=== PATIENT | male | born 1985 | race Caucasian/White ===

== ENCOUNTER 2019-04-28 12:37 | Emergency (ER) | payer MEDICAID, MEDICARE ==
[~2019-04-28] VITALS: Ht 180.3 cm; Wt 73.0 kg
[2019-04-28] MEDS ORDERED: LORAZEPAM 0.5MG TABLET PO ONE (15:30)
[2019-04-28 17:31] VITALS: BP 124/82
== END 2019-04-28 17:47 | disposition home or self-care (01) ==
LOC: ER 12:37
DX: F41.9 Anxiety disorder, unspecified (principal); F17.290 Nicotine dependence, other tobacco product, uncomplicated; F12.10 Cannabis abuse, uncomplicated; F32.9 Major depressive disorder, single episode, unspecified; F20.9 Schizophrenia, unspecified; Z88.8 Allergy status to other drugs, medicaments and biological substances
CPT/HCPCS: 99282; 99283; 99406